=== PATIENT | female | born 1980 | race Caucasian/White ===

== ENCOUNTER 2016-09-02 18:17 | Emergency (ER) | payer BC, MEDICAID, OTHER ==
[2016-09-02] MEDS ORDERED: SODIUM CHLORIDE 0.9% 1,000 ML ONE (19:16)
[2016-09-02 19:22] LABS: ABSOLUTE NEUTROPHIL COUNT 4.1 K/mm3 (1.8-7.7); BASO # 0.1 K/mm3 (0.0-0.2); BASO % 0.8 % (0.2-1.0); EOS % 0.5 % (0.9-2.9); HEMATOCRIT 41.2 % (37.0-47.0); HEMOGLOBIN 13.3 gm/l (12.0-16.0); IMM NEUT% 0.3 % (0-1); LYMPH # 2.7 (1.0-4.8); LYMPH % 35.9 % (15-45); MEAN CELL VOLUME 92.2 fl (81.0-99.0); MEAN CORPUSCULAR HEMOGLOBIN 29.8 pg (27.0-31.0); MEAN CORPUSCULAR HGB CONC 32.3 g/dl (33.0-37.0); MONO # 0.6 (0.0-0.8); MONO % 8.2 % (4-12); NEUT % 54.3 % (43-75); PLATELET COUNT 312 K/mm3 (130-400); RED CELL DISTRIBUTION WIDTH 13.1 % (11.5-14.5)
--- NOTE | 2016-09-02 20:24 | US ---
EXAMINATION: Obstetrical ultrasound less than 14 weeks. CLINICAL INDICATION:Left lower quadrant pain. UTI. Early . Clinical estimated gestational age: 6 weeks 0 days : 4 , para 2 Technique:Transabdominal and transvaginal sonograms performed. Findings: There is no discernible gestational sac, pole, yolk sac or cardiac activity identified. There is an anechoic fluid collection centrally within the uterus measuring 1.41 cm in diameter. No irregularity is identified. There is no visible pole, cardiac activity or yolk sac. No adjacent hemorrhage is appreciated. Maternal adnexa: Right ovary 5.4 x 2.3 x 2.8. centimeters. There is a complicated central cyst measuring 2.3 x 2.2 x 2.3 cm. Slight increased Doppler flow is noted to the right ovary. Left ovary: 4.4 x 1.5 x 1.7 centimeters. There is Doppler flow. Free fluid:Absent IMPRESSION: 1. Currently no intrauterine gestation is identified. There is a intrauterine fluid collection with slightly irregular borders. This would be equivalent to a 5 week 4 day gestation. This finding is nonspecific. Early intrauterine gestation, missed , and ectopic cannot be excluded.. 2. Probable right 2.3 cm corpus luteum cyst. An ovarian ectopic is currently considered much less likely but cannot be excluded with confidence. The left adnexa is unremarkable. Continued clinical surveillance, serial serum beta hCGs and followup sonography if indicated should be considered. The findings were uploaded to the electronic medical record for review at approximately 8:24 PM 09/02/2016
== END 2016-09-02 21:40 | disposition home or self-care (01) ==
LOC: ED 18:17
DX: O26.891 Other specified pregnancy related conditions, first trimester (principal); R10.2 Pelvic and perineal pain; Z3A.01 Less than 8 weeks gestation of pregnancy
CPT/HCPCS: 84702; 85025; 76817; 76801; 86901; 99283 ×2; 96360; J7030

== ENCOUNTER 2016-10-16 12:19 | Emergency (ER) | payer MEDICAID | END 2016-10-16 13:26 | disposition home or self-care (01) | LOC: ED 12:19 | DX: O20.9 Hemorrhage in early pregnancy, unspecified (principal); Z3A.12 12 weeks gestation of pregnancy; Z88.0 Allergy status to penicillin; Z88.8 Allergy status to other drugs, medicaments and biological substances; Z79.899 Other long term (current) drug therapy ==